=== PATIENT | male | born 1955 | race Caucasian/White ===

== ENCOUNTER 2022-08-25 07:32 | Day surgery (SDC) | payer OTHER ==
[~2022-08-25] VITALS: Ht 175.3 cm; Wt 97.4 kg
[2022-08-25] MEDS ORDERED: TAMS.4ER PO (08:00)
== END 2022-08-25 09:41 | disposition home or self-care (01) ==
LOC: ORSCSDS 07:32
PROVIDERS: Surgery
PROC: 0DBN8ZX Excision of Sigmoid Colon, Via Natural or Artificial Opening Endoscopic, Diagnostic (ICD-10-PCS; principal; 2022-08-25 09:00)
PROC: 0DBP8ZX Excision of Rectum, Via Natural or Artificial Opening Endoscopic, Diagnostic (ICD-10-PCS; principal; 2022-08-25 09:00)
PROC: 0DBH8ZX Excision of Cecum, Via Natural or Artificial Opening Endoscopic, Diagnostic (ICD-10-PCS; principal; 2022-08-25 09:00)
DX: Z12.11 Encounter for screening for malignant neoplasm of colon (principal); D12.0 Benign neoplasm of cecum; D12.5 Benign neoplasm of sigmoid colon; D12.8 Benign neoplasm of rectum; K57.30 Diverticulosis of large intestine without perforation or abscess without bleeding; I10 Essential (primary) hypertension; E66.9 Obesity, unspecified; Z68.36 Body mass index [BMI] 36.0-36.9, adult; Z79.899 Other long term (current) drug therapy
CPT/HCPCS: J2405; J2704

== ENCOUNTER → 2024-06-30 | Outpatient (CLI) | payer OTHER ==
[~2024-06-30] MED LIST: TAMS.4ER PO
== END | disposition home or self-care (01) ==
LOC: LAB SHORT 14:22 → LAB 14:22
DX: N41.0 Acute prostatitis (principal)
CPT/HCPCS: 87077; 87086; 87186